=== PATIENT | male | born 1940 | race Caucasian/White ===

== ENCOUNTER → 2019-10-25 | Outpatient (CLI) | payer OTHER | END | disposition home or self-care (01) | LOC: PUC 15:49 | DX: N39.0 Urinary tract infection, site not specified (principal) | CPT/HCPCS: 87086 ==

== ENCOUNTER 2021-11-13 06:03 | Inpatient (IN) | payer MEDICARE, OTHER ==
[~2021-11-13] VITALS: Ht 172.7 cm; Wt 74.6 kg
[2021-11-13] MEDS ORDERED: SIMV-259 PO (06:11)
[2021-11-13] MEDS ORDERED: [UNRECOGNIZED DRUG - OTHER] PO (06:11)
[2021-11-13 06:59] LABS: BASOPHILS % (AUTO) 0.6 % (0.0-2.0); EOSINOPHILS % (AUTO) 4.1 % (1.0-6.0); HEMATOCRIT 26.3 % (41-53); HEMOGLOBIN 9.1 g/dL (13.5-17.5); MEAN CORPUSCULAR HEMOGLOBIN 33.7 pg (26.0-34.0); MEAN CORPUSCULAR HGB CONC 34.5 G/dL (31.0-37.0); MEAN CORPUSCULAR VOLUME 98 fL (80-100); MONOCYTES # (AUTO) 0.6 K/uL (0.1-1.0); MONOCYTES % (AUTO) 11.5 % (2.0-9.0); NEUTROPHILS # (AUTO) 3.6 K/uL (1.8-7.7); NEUTROPHILS % (AUTO) 65.8 % (40.0-70.0); PLATELET COUNT (AUTO) 169 K/uL (150-450); RED CELL DISTRIBUTION WIDTH 14.1 % (11.5-14.5)
[2021-11-13 07:01] LABS: COVID AG,FIA SOURCE NASOPHARYNGEAL
[2021-11-13 07:09] LABS: CALCIUM, TOTAL 8.6 mg/dL (8.8-10.5); CREATININE 3.7 mg/dL (0.60-1.30); POTASSIUM 4.9 mmol/L (3.5-5.1)
[2021-11-13 07:14] LABS: ALBUMIN 3.3 g/dL (3.4-5.0); BILIRUBIN,TOTAL 0.5 mg/dL (0.1-1.0); TOTAL PROTEIN, SERUM 6.8 g/dL (6.4-8.2)
[2021-11-13] MEDS ORDERED: FUROSEMIDE 40 MG/4 ML VIAL IVP ONE (07:45)
[2021-11-13] MEDS ORDERED: ONDANSETRON HCL 4 MG/2 ML VIAL IVP PRN (08:15)
[2021-11-13] MEDS ORDERED: ACETAMINOPHEN 325 MG TABLET PO PRN ×2 (08:15→12:30)
[2021-11-13] MEDS ORDERED: ALLO100T PO (12:20)
[2021-11-13] MEDS ORDERED: METO-408 PO (12:20)
[2021-11-13] MEDS ORDERED: LOSA100T58 PO (12:20)
[2021-11-13] MEDS: AmLODIPine BESYLATE 5 MG TABLET PO SCH (12:22)
[2021-11-13] MEDS: CARVEDILOL 6.25 MG TABLET PO SCH ×2 (13:16→21:30)
[2021-11-13] MEDS: HEPARIN SODIUM,PORCINE 5,000 UNITS/ML VIAL SQ SCH (21:30)
[2021-11-13] MEDS: DOCUSATE SODIUM 100 MG CAPSULE PO SCH (21:30)
[2021-11-14 07:10] LABS: BASOPHILS % (AUTO) 0.5 % (0.0-2.0); EOSINOPHILS % (AUTO) 1.1 % (1.0-6.0); HEMOGLOBIN 8.4 g/dL (13.5-17.5); LYMPHOCYTES # (AUTO) 1.3 K/uL (1.0-4.8); MEAN CORPUSCULAR HEMOGLOBIN 33.7 pg (26.0-34.0); MEAN CORPUSCULAR VOLUME 96 fL (80-100); MONOCYTES # (AUTO) 0.8 K/uL (0.1-1.0); MONOCYTES % (AUTO) 15.1 % (2.0-9.0); NEUTROPHILS # (AUTO) 3.2 K/uL (1.8-7.7); NEUTROPHILS % (AUTO) 59.3 % (40.0-70.0); PLATELET COUNT (AUTO) 151 K/uL (150-450); RED BLOOD CELL COUNT(AUTO) 2.49 MIL/uL (4.50-5.90); RED CELL DISTRIBUTION WIDTH 13.9 % (11.5-14.5)
[2021-11-14 07:19] LABS: D-DIMER 1.31 mg/L FEU (0.00-0.50); INR 1.2 (0.9-1.1); PROTHROMBIN TIME 12.5 SEC (9.4-11.6)
[2021-11-14 07:20] LABS: CALCIUM, TOTAL 8.4 mg/dL (8.8-10.5); CREATININE 3.91 mg/dL (0.60-1.30); POTASSIUM 5.2 mmol/L (3.5-5.1)
[2021-11-14] MEDS: AmLODIPine BESYLATE 5 MG TABLET PO SCH (08:31)
[2021-11-14] MEDS: FAMOTIDINE 20 MG TABLET PO SCH (08:31)
[2021-11-14] MEDS: ASPIRIN 81 MG CHEWABLE TABLET PO SCH (08:31)
[2021-11-14] MEDS: DOCUSATE SODIUM 100 MG CAPSULE PO SCH ×2 (08:31→20:44)
[2021-11-14] MEDS: FUROSEMIDE 20 MG/2 ML VIAL IVP SCH (08:31)
[2021-11-14] MEDS: HEPARIN SODIUM,PORCINE 5,000 UNITS/ML VIAL SQ SCH ×2 (08:32→20:45)
[2021-11-14] MEDS: CARVEDILOL 6.25 MG TABLET PO SCH ×2 (09:32→20:44)
[2021-11-14 10:23] LABS: APPEARANCE,URINE CLEAR (CLEAR); BILIRUBIN,URINE NEGATIVE (NEGATIVE); GLUCOSE, URINE (UA) NEGATIVE (NEGATIVE); KETONES,URINE NEGATIVE (NEGATIVE); LEUKOCYTE ESTERASE ,URINE NEGATIVE (NEGATIVE); NITRATE,URINE NEGATIVE (NEGATIVE); OCCULT BLOOD,URINE NEGATIVE (NEGATIVE); PH,URINE 5.5 (5.0-8.0); PROTEIN,URINE POS 1+ (NEGATIVE); UROBILINOGEN,URINE 0.2 mg/dL (<=1.0)
[2021-11-14 10:42] LABS: BACTERIA,URINE None Seen /HPF (None Seen); RBC,URINE None Seen /HPF (0-2); SQUAMOUS EPITHELIAL CELL,UR None Seen /LPF (None Seen); WBC,URINE None Seen /HPF (0-5)
[2021-11-14 10:54] LABS: CREATININE,URINE RANDOM 56.6 mg/dL (30.0-125.0)
[2021-11-14 16:07] VITALS: BP 125/67
[2021-11-14 16:09] VITALS: BP 125/67
[2021-11-14] MEDS ORDERED: INFLUENZA VIRUS VACCINE QVS 2021-22 (6MO+)/PF 60 MCG/0.5 ML SYRINGE IM. ONE (18:45)
[2021-11-14 20:00] VITALS: BP 133/74
[2021-11-15 04:00] VITALS: BP 130/75
[2021-11-15 07:40] VITALS: BP 140/73
[2021-11-15] MEDS: FUROSEMIDE 20 MG/2 ML VIAL IVP SCH (08:46)
[2021-11-15] MEDS: HEPARIN SODIUM,PORCINE 5,000 UNITS/ML VIAL SQ SCH ×2 (08:46→20:31)
[2021-11-15] MEDS: DOCUSATE SODIUM 100 MG CAPSULE PO SCH ×2 (08:47→20:30)
[2021-11-15] MEDS: FAMOTIDINE 20 MG TABLET PO SCH (08:48)
[2021-11-15] MEDS: AmLODIPine BESYLATE 5 MG TABLET PO SCH (08:48)
[2021-11-15] MEDS: ASPIRIN 81 MG CHEWABLE TABLET PO SCH (08:48)
[2021-11-15] MEDS: CARVEDILOL 6.25 MG TABLET PO SCH (08:52)
[2021-11-15] MEDS ORDERED: AMIODARONE HCL 150 MG in DEXTROSE 5%-WATER 97 ML IV ONE (12:20)
[2021-11-15] MEDS ORDERED: AMIODARONE HCL 360 MG in DEXTROSE 5%-WATER 242.8 ML IV ONE (12:30)
[2021-11-15 12:38] VITALS: BP 145/75
[2021-11-15 12:42] LABS: CALCIUM, TOTAL 8.7 mg/dL (8.8-10.5); CREATININE 3.88 mg/dL (0.60-1.30); POTASSIUM 4.8 mmol/L (3.5-5.1)
[2021-11-15] MEDS ORDERED: SODIUM CHLORIDE 0.9% 250 ML IV ONE (13:00)
[2021-11-15 15:51] VITALS: BP 132/71
[2021-11-15] MEDS ORDERED: AMIODARONE HCL 540 MG in DEXTROSE 5%-WATER 239.2 ML IV ONE (18:30)
[2021-11-15] MEDS: METOPROLOL TARTRATE 50 MG TABLET PO SCH (20:30)
[2021-11-16 03:23] VITALS: BP 141/72
[2021-11-16 06:15] LABS: BASOPHILS % (AUTO) 0.5 % (0.0-2.0); EOSINOPHILS % (AUTO) 3.6 % (1.0-6.0); HEMATOCRIT 27.6 % (41-53); HEMOGLOBIN 9.4 g/dL (13.5-17.5); LYMPHOCYTES # (AUTO) 1.4 K/uL (1.0-4.8); LYMPHOCYTES % (AUTO) 23.1 % (22.0-44.0); MEAN CORPUSCULAR HEMOGLOBIN 32.7 pg (26.0-34.0); MEAN CORPUSCULAR VOLUME 96 fL (80-100); MONOCYTES # (AUTO) 0.7 K/uL (0.1-1.0); MONOCYTES % (AUTO) 11.6 % (2.0-9.0); NEUTROPHILS # (AUTO) 3.6 K/uL (1.8-7.7); NEUTROPHILS % (AUTO) 61.2 % (40.0-70.0); PLATELET COUNT (AUTO) 193 K/uL (150-450); RED BLOOD CELL COUNT(AUTO) 2.87 MIL/uL (4.50-5.90)
[2021-11-16 06:45] LABS: % IRON SATURATION 18.9 % (30-44)
[2021-11-16 07:41] LABS: CALCIUM, TOTAL 8.9 mg/dL (8.8-10.5); CREATININE 4.06 mg/dL (0.60-1.30); POTASSIUM 4.7 mmol/L (3.5-5.1)
[2021-11-16 07:47] VITALS: BP 133/76
[2021-11-16] MEDS: DOCUSATE SODIUM 100 MG CAPSULE PO SCH (09:56)
[2021-11-16] MEDS: ASPIRIN 81 MG CHEWABLE TABLET PO SCH (09:57)
[2021-11-16] MEDS: FAMOTIDINE 20 MG TABLET PO SCH (09:57)
[2021-11-16] MEDS: METOPROLOL TARTRATE 50 MG TABLET PO SCH (09:57)
[2021-11-16] MEDS: FUROSEMIDE 20 MG/2 ML VIAL IVP SCH (09:58)
[2021-11-16] MEDS: HEPARIN SODIUM,PORCINE 5,000 UNITS/ML VIAL SQ SCH (10:00)
[2021-11-16] MEDS ORDERED: APIX2.5T PO (11:09)
[2021-11-16] MEDS ORDERED: FURO20 PO (11:14)
[2021-11-16 11:39] VITALS: BP 146/76
[2021-11-16] MEDS ORDERED: AMIODARONE HCL 750 MG in DEXTROSE 5%-WATER 485 ML IV SCH (12:30)
[2021-11-16] MEDS ORDERED: APIXABAN 2.5 MG TABLET PO SCH (21:00)
[2021-11-17] MEDS ORDERED: FUROSEMIDE 20 MG TABLET PO SCH (09:00)
[2021-11-18] MEDS ORDERED: EPOETIN ALFA 10,000 UNITS/ML VIAL SQ ONE (09:00)
== END 2021-11-16 14:45 | disposition left against medical advice (07) | DRG 291 ==
LOC: EMS 06:03 → 5S 11-14 14:56
PROVIDERS: ADMIT Internal Medicine; ATTEND Internal Medicine
DX: I13.2 Hypertensive heart and chronic kidney disease with heart failure and with stage 5 chronic kidney disease, or end stage renal disease (principal); N18.6 End stage renal disease; I50.33 Acute on chronic diastolic (congestive) heart failure; I48.92 Unspecified atrial flutter; N17.9 Acute kidney failure, unspecified; I25.10 Atherosclerotic heart disease of native coronary artery without angina pectoris; E78.5 Hyperlipidemia, unspecified; D63.1 Anemia in chronic kidney disease; Z96.653 Presence of artificial knee joint, bilateral; Z53.29 Procedure and treatment not carried out because of patient's decision for other reasons; I48.91 Unspecified atrial fibrillation; I77.810 Thoracic aortic ectasia; Z20.822 Contact with and (suspected) exposure to COVID-19; Z87.891 Personal history of nicotine dependence; Z88.8 Allergy status to other drugs, medicaments and biological substances
CPT/HCPCS: 71045; 76770; 80048; 80053; 81001; 82570; 82728; 83540; 83550; 83880; 83970; 84145; 84156; 84300; 84484; 84540; 85025; 85379; 85610; 85730; 93005; 93306; 99291; J0282; J1644; J1940; J7050; J7060; 36415-L1; 36415-TC; C9803; U0003